=== PATIENT | female | born 1995 | race Two or more races ===

== ENCOUNTER 2025-02-21 02:13 | Emergency (ER) | payer MEDICAID, SELFPAY ==
[2025-02-21 02:17] VITALS: BMI 36.3
[2025-02-21 02:29] VITALS: BP 123/79; PULSE 73; RESP 19; TEMP 36.8; O2SAT 98
--- NOTE | 2025-02-21 02:39 | EDNOTE_ITS ---
ED Ear RME/HPI General Chief complaint: Ear Stated complaint: R EAR PAIN Time Seen by Provider: 02/21/25 02:26 Source: patient, RN notes reviewed and old records reviewed Arrival date/time: 02/21/25 02:13 Mode of arrival: ambulatory Limitations: no limitations RME / HPI RME / HPI Narrative: 29yof presents to ED for right ear pain since yesterday. Denies recent URI symptoms or swimming. No fever, sore throat, nausea/vomiting or headache reported. Patient took 1.5g of Amoxil yesterday without symptom improvement. No pain relievers taken. Related Data Previous Rx's ?Medication ?Instructions ?Recorded amoxicillin 875 mg-potassium 1 tab PO BID 7 days #14 t abs 02/21/25 clavulanate 125 mg tablet ibuprofen 600 mg tablet 600 mg PO Q6H PRN fever or p ain 02/21/25 #30 tabs ofloxacin 0.3 % ear drops 10 drp otic (ear) QDAY 7 day s #10 02/21/25 mL Allergies Allergy/AdvReac Type Severity Reaction Status Date / Time No Known Allergies Allergy Verified 02/21/25 02:24 Review of Systems Review of Systems Systems Reviewed: All systems reviewed, normal except as documented Constitutional Constitutional: Denies chills, Denies fever(s) and Denies headache(s) ENT Ears, Nose, Mouth, and Throat: Denies ear discharge, Reports otalgia, Denies headache(s), Denies nasal congestion and Denies sore throat Respiratory Respiratory: Denies cough Gastrointestinal Gastrointestinal: Denies nausea and Denies vomiting Neurologic Neurologic: Denies headache(s) Past Medical History Past Medical History GASTROINTESTINAL: Positive Obesity Surgical History OTHER SURGICAL HX: Denies past surgical history Social History SMOKING STATUS: Never smoker SUBSTANCE USE: does not use ALCOHOL: Never ED Exam General Limitations: Present no limitations General appearance: Present alert, in no apparent distress and obese Head Head exam: Present atraumatic and normocephalic Eye Eye exam: Present normal appearance, PERRL and EOMI ENT ENT exam: Present normal oropharynx, mucous membranes moist and other (Mild right TM erythema. Mild right EAC swelling with discharge. No mastoid ttp. Left TM clear and intact.) Neck Neck exam: Present normal inspection and full ROM Chest Chest inspection: Present normal inspection and symmetric chest wall rise Respiratory Respiratory exam: Present normal lung sounds bilaterally; Absent respiratory distress Cardiovascular Cardiovascular exam: Present regular rate and normal rhythm Extremities Exam Extremities exam: Present normal inspection and full ROM Neurological Exam Neurological exam: Present alert and oriented X3 Psychiatric Psychiatric exam: Present normal affect and normal mood Skin Skin exam: Present warm, dry, intact and normal color Course Quality Measures none Vital Signs Vital signs: Vital Signs Temperature 98.3 F 02/21/25 02:29 Pulse Rate 73 02/21/25 02:29 Respiratory Rate 19 02/21/25 02:29 Blood Pressure 123/79 02/21/25 02:29 Pulse Oximetry (%) 98 02/21/25 02:29 Oxygen Delivery Method Room Air 02/21/25 02:29 Ear MDM Narrative MDM Narrative:: 29yof presents to ED for right ear pain since yesterday. Denies recent URI symptoms or swimming. No fever, sore throat, nausea/vomiting or headache reported. Patient took 1.5g of Amoxil yesterday without symptom improvement. No pain relievers taken. Will treat for both otitis media/externa. Patient is well-appearing, afebrile, vitals are stable. No evidence of mastoiditis. Recommended Motrin/Tylenol prn pain. Stable for discharge, RTED precautions given. Patient data External records reviewed:: [facility] previous records (08/14/2024 ED visit for otitis media) Clinical information provided by:: patient Social determinants that could affect healthcare access:: other (specify) (Poor access to healthcare, acculturation difficulty) Patient has the following chronic illnesses:: obesity How is presenting disease/condition affected by chronic disease/condition?: uneffected by Evaluation data The following diagnostics were reviewed and interpreted by me:: other (specify) (None) Lab and/or radiology exams considered but not ordered:: None Interpretation Summary: na Medications / Prescriptions Medications or Prescriptions considered but not ordered:: None Medication administrations:: None Consultations Consultation(s) initiated? (list below): No Diagnosis Ear Differential Diagnosis: otitis externa, otitis media, foreign body in ear, ruptured TM and cerumen impaction Most likely diagnosis given after review of the tests above:: Otitis media/externa Admission Indicated Admission indicated?: not indicated Admission Request Was there a request for admission?: No Disposition Plan Disposition Plan: Discharge Discharge Attestation Discharge Attestation: The patient and all family members were given an opportunity to ask questions and understood the discharge instructions. Discharge instructions specifically effects, indications for sooner follow up or return to the emergency department, and the expected course of current diagnosis. Patient condition: Stable Discharge Plan Plan Patient Disposition: HOME (Self Care) Patient condition on transfer: Stable Prescriptions/Referrals Prescriptions/Med Rec: New ibuprofen 600 mg tablet 600 mg PO Q6H PRN (Reason: fever or pain) Qty: 30 0RF amoxicillin-pot clavulanate 875-125 mg tablet 1 tab PO BID 7 Days Qty: 14 0RF ofloxacin 0.3 % drops 10 drp otic (ear) QDAY 7 Days Qty: 10 0RF Problem List Clinical Impression: Acute right otitis media, Otalgia of right ear, Acute otitis externa of right ear Patient/Caregiver Discharge Instructions Education Materials: ED Otitis Media Antibiotic ... Print Language: Bur[place]ian Stand Alone Forms: Barb Award Info., Patient Portal Info Letter PA/FLORIAN Supervising Physician PA/FLORIAN Supervising Physician: Max
== END 2025-02-21 02:57 | disposition home or self-care (01) ==
LOC: SERX 02:52
PROVIDERS: Emergency Provider Emergency Medicine; PCP Physician Assistant
DX: H66.91 Otitis media, unspecified, right ear (principal); H60.501 Unspecified acute noninfective otitis externa, right ear
CPT/HCPCS: 99281